=== PATIENT | male | born 1955 | race African-American/Black ===

== ENCOUNTER 2019-03-12 12:20 | Emergency (ER) | payer MEDICAID ==
[~2019-03-12] VITALS: Ht 182.9 cm; Wt 104.3 kg
[2019-03-12] MEDS ORDERED: KETOROLAC TROMETH 60MG/2ML VIAL IM ONE (12:45)
[2019-03-12 13:42] LABS: Basophils # (auto) 0 uL; Basophils % (auto) 0.5 % (0.0-2.0); Eosinophils # (auto) 0.3 uL; Eosinophils % (auto) 3.9 % (0.0-7.0); Hematocrit 46.2 % (41.0-53.0); Hemoglobin 15.7 g/dL (13.5-17.5); Lymphocytes # (auto) 1.5 uL; Lymphocytes % (auto) 23.2 % (10.0-50.0); Mean Corpuscular Hemoglobin 30.1 pg (28.0-32.0); Mean Corpuscular Volume 88.5 fL (80.0-100.0); Monocytes # (auto) 0.4 uL; Monocytes % (auto) 6.6 % (0.0-12.0); Neutrophils # (auto) 4.3 uL; Neutrophils % (auto) 65.8 % (37.0-80.0); Nucleated Red Blood Cells % 0.1 %; Platelet Count (auto) 202 10^3/uL (140-450); Red Blood Cells 5.22 10^6/uL (4.5-5.90); Red Cell Distribution Width 14.8 % (11.8-14.3); White Blood Cell 6.5 10^3/uL (4.4-10.8)
[2019-03-12 14:00] LABS: Albumin 3.5 g/dL (3.4-5.0); Anion Gap 7 (5-15); Blood Urea Nitrogen 12 mg/dL (7-18); Calcium 8.5 mg/dL (8.5-10.1); Carbon Dioxide 27 mmol/L (21-32); Chloride 110 mmol/L (98-107); Glucose 125 mg/dL (74-106); Potassium 3.9 mmol/L (3.5-5.1); Sodium 144 mmol/L (136-145)
[2019-03-12 14:03] LABS: Alanine Aminotransferase 23 U/L (16-61); Aspartate Aminotransferase 17 U/L (15-37); BUN/Creatinine Ratio 11.5; GFR African American 92 mL/min; GFR Non-African American 76 mL/min
[2019-03-12 14:11] LABS: Alkaline Phosphatase 81 U/L (45-117); Bilirubin, Total 0.4 mg/dL (0.2-1.0)
[2019-03-12 14:12] LABS: Total Protein 7.4 g/dL (6.4-8.2)
[2019-03-12 15:35] VITALS: BP 176/93
== END 2019-03-12 16:08 | disposition home or self-care (01) ==
LOC: ER 12:26
DX: S33.5XXA Sprain of ligaments of lumbar spine, initial encounter (principal); G31.89 Other specified degenerative diseases of nervous system; E11.9 Type 2 diabetes mellitus without complications; I10 Essential (primary) hypertension; F17.210 Nicotine dependence, cigarettes, uncomplicated; Z88.0 Allergy status to penicillin; X58.XXXA Exposure to other specified factors, initial encounter; Y93.89 Activity, other specified; Y92.89 Other specified places as the place of occurrence of the external cause; Y99.8 Other external cause status
CPT/HCPCS: 36415; 71045; 72100; 80053; 84484; 85025; 96372; 99284; J1885

== ENCOUNTER 2023-07-19 16:05 | Inpatient (IN) | payer MEDICARE, MEDICAID ==
[~2023-07-19] VITALS: Ht 170.2 cm; Wt 109.0 kg
[2023-07-19 19:45] LABS: Basophils # (auto) 0.1 10 ^3/uL (0-0.2); Basophils % (auto) 0.7 % (0.0-2.0); Eosinophils # (auto) 0.2 10 ^3/uL (0-0.8); Eosinophils % (auto) 2.5 % (0.0-7.0); Hematocrit 45.3 % (41.0-53.0); Hemoglobin 15.2 g/dL (13.5-17.5); Lymphocytes # (auto) 1.7 10 ^3/uL (0.4-5.4); Lymphocytes % (auto) 19.3 % (10.0-50.0); Mean Corpuscular Hemoglobin 29.5 pg (28.0-32.0); Mean Corpuscular Hgb Conc. 33.5 g/dL (32.0-36.0); Mean Corpuscular Volume 87.9 fL (80.0-100.0); Monocytes # (auto) 0.8 10 ^3/uL (0-1.3); Monocytes % (auto) 9.8 % (0.0-12.0); Neutrophils # (auto) 5.8 10 ^3/uL (1.6-8.6); Neutrophils % (auto) 67.7 % (37.0-80.0); Nucleated Red Blood Cells % 0.1 %; Red Blood Cells 5.16 10^6/uL (4.5-5.90); Red Cell Distribution Width 14.8 % (11.8-14.3); White Blood Cell 8.6 10^3/uL (4.4-10.8)
[2023-07-19 20:01] LABS: Alanine Aminotransferase 26 U/L (7-40); Alkaline Phosphatase 83 U/L (46-116); Anion Gap 6 (5-15); Aspartate Aminotransferase 20 U/L (13-40); Bilirubin, Total 0.3 mg/dL (0.2-1.0); Blood Urea Nitrogen 18 mg/dL (9-23); Calcium 9.1 mg/dL (8.5-10.1); Carbon Dioxide 29 mmol/L (20-30); Chloride 106 mmol/L (98-107); Glucose 95 mg/dL (74-106); Potassium 4.4 mmol/L (3.5-5.1); Sodium 141 mmol/L (136-145); Total Protein 6.7 g/dL (5.7-8.2)
[2023-07-19 20:04] LABS: Lactic Acid w/Reflex 2.9 mmol/L (0.4-2.0)
[2023-07-19] MEDS ORDERED: TEMAZEPAM 15 MG CAP PO PRN (23:00)
[2023-07-19] MEDS ORDERED: ACETAMINOPHEN 325 MG TAB PO PRN (23:00)
[2023-07-19] MEDS ORDERED: DEXTROSE (50%) 50ML SYRG IV PRN (23:00)
[2023-07-20 01:12] VITALS: TEMP 98
[2023-07-20] MEDS: VANCOMYCIN 1GM/200ML 200 ML IV ONE (01:56)
[2023-07-20] MEDS: HYDROcodone-ACET 5/325MG TAB PO PRN (01:56)
[2023-07-20 02:10] VITALS: PULSE 87; RESP 16
[2023-07-20 05:02] LABS: Basophils # (auto) 0 10 ^3/uL (0-0.2); Basophils % (auto) 0.4 % (0.0-2.0); Eosinophils # (auto) 0.2 10 ^3/uL (0-0.8); Eosinophils % (auto) 2.9 % (0.0-7.0); Hematocrit 42.3 % (41.0-53.0); Hemoglobin 14.1 g/dL (13.5-17.5); Lymphocytes # (auto) 1.6 10 ^3/uL (0.4-5.4); Lymphocytes % (auto) 18.7 % (10.0-50.0); Mean Corpuscular Hemoglobin 28.9 pg (28.0-32.0); Mean Corpuscular Hgb Conc. 33.3 g/dL (32.0-36.0); Monocytes # (auto) 0.7 10 ^3/uL (0-1.3); Monocytes % (auto) 7.9 % (0.0-12.0); Neutrophils # (auto) 6.1 10 ^3/uL (1.6-8.6); Neutrophils % (auto) 70.1 % (37.0-80.0); Nucleated Red Blood Cells % 0.1 %; Red Blood Cells 4.86 10^6/uL (4.5-5.90); Red Cell Distribution Width 14.6 % (11.8-14.3); White Blood Cell 8.7 10^3/uL (4.4-10.8)
[2023-07-20 05:23] LABS: Anion Gap 4 (5-15); Carbon Dioxide 27 mmol/L (20-30); Chloride 107 mmol/L (98-107); Potassium 3.7 mmol/L (3.5-5.1); Sodium 138 mmol/L (136-145)
[2023-07-20 05:24] LABS: Calcium 8.7 mg/dL (8.5-10.1)
[2023-07-20 05:29] LABS: BUN/Creatinine Ratio 12.8 (10.0-20.0); Blood Urea Nitrogen 15 mg/dL (9-23); Glucose 144 mg/dL (74-106)
[2023-07-20] MEDS: CLINDAMYCIN 600MG IV 50 ML IV SCH (06:27)
[2023-07-20] MEDS: hydrALAZINE HCL 25 MG TAB PO SCH (06:27)
[2023-07-20] MEDS: InsuLIN REG 1unit/0.01ml Soln (100units/ml) SC SCH (07:00)
[2023-07-20] MEDS: ACCU-CHEK COMFORT CURVE STRIP VI SCH (07:08)
[2023-07-20 08:19] VITALS: PULSE 66; RESP 16; O2SAT 97
[2023-07-20] MEDS: hydroCHLOROthiazide 25 MG TAB PO SCH (10:17)
[2023-07-20] MEDS: VALSARTAN 80 MG TAB PO SCH (10:17)
[2023-07-20] MEDS: ENOXAPARIN SOD 40 MG/0.4 ML SYRINGE SC SCH (10:18)
[2023-07-20] MEDS: ONDANSETRON HCL 4 MG/2 ML VIAL IV PRN (14:56)
[2023-07-20] MEDS: MORPHINE SULFATE INJ 2 MG/ml SYRG IV PRN (14:57)
[2023-07-20 15:09] VITALS: O2SAT 97
[2023-07-20 16:36] VITALS: BP 150/84; PULSE 84; RESP 18
[2023-07-20] MEDS ORDERED: TAMSULOSIN HYDROCHLORIDE 0.4 MG CAP PO SCH (18:00)
[2023-07-20] MEDS ORDERED: ATORVASTATIN 20 MG TAB PO SCH (22:00)
== END 2023-07-21 17:30 | disposition left against medical advice (07) | DRG 383 ==
LOC: ER 16:05 → OVERFLOW 22:58
PROVIDERS: ADMIT Nurse Practitioner; ATTEND Family Medicine
DX: L03.116 Cellulitis of left lower limb (principal); E87.20 Acidosis, unspecified; E11.9 Type 2 diabetes mellitus without complications; Z53.29 Procedure and treatment not carried out because of patient's decision for other reasons; F17.210 Nicotine dependence, cigarettes, uncomplicated; I10 Essential (primary) hypertension; G89.29 Other chronic pain; Z88.0 Allergy status to penicillin; Z79.4 Long term (current) use of insulin
CPT/HCPCS: 36415; 71045; 73620; 80048; 80053; 82962; 83605; 83880; 84484; 85025; 85379; 87040; 93970; G0378; J2405; J3490